=== PATIENT | male | born 1985 | race Caucasian/White ===

== ENCOUNTER 2018-05-03 16:24 | Emergency (ER) | payer SELFPAY ==
--- NOTE | 2018-05-03 17:04 | ER Document Report ---
ED Medical Screen (RME) - General Chief Complaint: Seizure Stated Complaint: POSSIBLE SEIZURE Time Seen by Provider: 05/03/18 17:00 TRAVEL OUTSIDE OF THE [place] IN LAST 30 DAYS: No - HPI Notes: 05/03/18 17:03 States history of seizure disorder on Dilantin and Valium does not know the dose of either medication states his pharmacy [facility] in [place] does not know the name of the pharmacy will have to call his sister to get name and phone number to confirm medications Narcotic database was performed with inquiries in [place] showing only Lunesta prescribed recently here in [place] by Dr. Lam in april - Related Data Allergies/Adverse Reactions: No Known Allergies Allergy (Unverified 07/10/14 13:53) Past Medical History - Social History Chew tobacco use (# tins/day): No Frequency of alcohol use: None Drug Abuse: Marijuana Neurological Medical History: Reports: Hx Seizures Renal/ Medical History: Denies: Hx Peritoneal Dialysis Past Surgical History: Reports: Hx Orthopedic Surgery - Right palmar hand surgery following laceration injury. - Immunizations Hx Diphtheria, Pertussis, Tetanus Vaccination: Yes Review of Systems - Review of Systems Neurological/Psychological: Seizure Physical Exam - Vital signs Vitals: Temp Pulse Resp BP Pulse Ox 99.3 F 117 H 16 133/88 H 97 05/03/18 16:30 05/03/18 16:30 05/03/18 16:30 05/03/18 16:30 05/03/18 16:30 - HEENT Head: Normocephalic Eyes: Normal Course - Vital Signs Vital signs: Temp Pulse Resp BP Pulse Ox 99.3 F 117 H 16 133/88 H 97 05/03/18 16:30 05/03/18 16:30 05/03/18 16:30 05/03/18 16:30 05/03/18 16:30
--- NOTE | 2018-05-03 17:48 | ER Document Report ---
ED General - General Chief Complaint: Seizure Stated Complaint: POSSIBLE SEIZURE Time Seen by Provider: 05/03/18 17:00 TRAVEL OUTSIDE OF THE [place] IN LAST 30 DAYS: No - HPI Notes: Patient is a 32-year-old male with a history of seizure disorder who presents to the emergency department with concern of increase in frequency of his seizures after being out of his medicine for the last 4 days. Patient states that he was otherwise recently incarcerated. Patient states that he was on Dilantin and Valium, but does not know the dosing. He states that he will call to try to find that out. He otherwise has not established with anybody here yet as he recently moved back from [place]. Patient states that sometimes his seizures are grand mal and other times he is still. Patient states that his grandmother witnessed the end of 1 of his seizures today, but was not there to witness the entire thing. Patient states that he was sitting down at the time. Patient states that there was a mild postictal period which is not uncommon for him. Patient states that since then he has felt back to normal and has no other concerns or complaints. He is eating and drinking without difficulty. He is urinating normally and having normal bowel movements. Patient does admit to marijuana use, but denies other IV drug abuse. Denies alcohol intake. Denies any headache, fever, head injury, neck pain, changes in vision/speech/mentation/hearing, URI, sore throat, chest pain, palpitations, syncope, cough, shortness of breath, wheeze, dyspnea, abdominal pain, nausea/vomiting/diarrhea, urinary retention, dysuria, hematuria, loss of control of bowel or bladder, numbness/tingling, saddle anesthesia, muscle par alysis/weakness, or rash. Update: pt called and found out that he take dilantin 200mg in the AM and 100mg in the PM. - Related Data Allergies/Adverse Reactions: No Known Allergies Allergy (Unverified 07/10/14 13:53) Past Medical History - Social History Smoking Status: Current Every Day Smoker Chew tobacco use (# tins/day): No Frequency of alcohol use: None Drug Abuse: Marijuana Family History: Reviewed & Not Pertinent Patient has suicidal ideation: No Patient has homicidal ideation: No Neurological Medical History: Reports: Hx Seizures Renal/ Medical History: Denies: Hx Peritoneal Dialysis Past Surgical History: Reports: Hx Orthopedic Surgery - Right palmar hand surgery following laceration injury. - Immunizations Hx Diphtheria, Pertussis, Tetanus Vaccination: Yes Review of Systems - Review of Systems -: Yes All other systems reviewed and negative Physical Exam - Vital signs Vitals: Temp Pulse Resp BP Pulse Ox 99.3 F 117 H 16 133/88 H 97 05/03/18 16:30 05/03/18 16:30 05/03/18 16:30 05/03/18 16:30 05/03/18 16:30 - Notes Notes: PHYSICAL EXAMINATION: GENERAL: Well-appearing, well-nourished and in no acute distress. A&Ox4. Answers questions appropriately. HEAD: Atraumatic, normocephalic. Non-tender. EYES: Pupils equal round and reactive to light, extraocular movements intact, sclera anicteric, conjunctiva are normal. No nystagmus. ENT: EAC clear b/l. TM's intact b/l without erythema, fluid, or perforation. Nares patent and without discharge. oropharynx clear without exudates. No ton silar hypertrophy or erythema. Moist mucous membranes. NECK: Normal range of motion, supple without lymphadenopathy. No rigidity/meningismus. No midline tenderness. LUNGS: Breath sounds clear to auscultation bilaterally and equal. No wheezes rales or rhonchi. HEART: Regular rate and rhythm without murmurs, rubs, gallops. ABDOMEN: Soft, nontender, nondistended abdomen. No guarding, no rebound. Normal bowel sounds present. No CVA tenderness bilaterally. Musculoskeletal: Ext's b/l: FROM to passive/active. Strength 5+/5. No deficits noted. No bony tenderness of extremities. Extremities: No cyanosis, clubbing, or edema b/l. Peripheral pulses 2+. Capillary refill less than 2 seconds. NEUROLOGICAL: NIH 0. GCS 15. Cranial nerves grossly intact. Normal speech, normal gait. Normal sensory, motor exams. Reflexes 2+ b/l. DAX's negative. Pronator drift negative. Heel/guevara, finger/nose wnl. PSYCH: Normal mood, normal affect. SKIN: Warm, Dry, normal turgor, no rashes or lesions noted. Course - Re-evaluation Re-evalutation: 05/03/18 19:16 Patient is an afebrile, well-hydrated, 32-year-old male who presents emergency department with reported seizures this morning in the setting of seizure disorde r. Vitals are acceptable without significant tachycardia, tachypnea, or hypoxia. PE is otherwise unremarkable for any focal neurological deficits. Patient is nontoxic-appearing and is tolerating p.o. without difficulties. Patient is subtherapeutic with his Dilantin. Labs are otherwise unremarkable. Patient states that he takes 200 mill grams of Dilantin in the morning and [address] Booth recommends 300mg at once daily. No further labs or imaging warranted. Low suspicion for any acute intracranial pathology, sepsis, meningitis, severe dehydration, respiratory compromise, or other systemic emergent condition at this time. Patient s aware that condition can change from initial presentation and he needs to monitor symptoms closely and seek medical attention with any acute changes. I will send him home with a prescription for Dilantin. Recheck with your PCM in 3-5 days. Consider consult with neurology. Return to the ED with any other worsening/concerning symptoms as reviewed. Patient is in agreement. - Vital Signs Vital signs: Temp Pulse Resp BP Pulse Ox 99.3 F 117 H 16 133/88 H 97 05/03/18 16:30 05/03/18 16:30 05/03/18 16:30 05/03/18 16:30 05/03/18 16:30 - Laboratory Result Diagrams: 05/03/18 18:00 Laboratory results interpreted by me: 05/03/18 05/03/18 18:00 18:00 Calcium 10.6 H Phenytoin < 3.0 L Discharge - Discharge Clinical Impression: Seizure Condition: Stable Disposition: HOME, SELF-CARE Instructions: Seizure, Known Epileptic ([facility]) Additional Instructions: Tylenol/ibuprofen as needed Light stretches daily Strength exercises as able Moist heat and massage may help F/u with your PCP in 3-5 days for a recheck Consider consult(s) with Neurology for ongoing/worsening symptoms Return to the ED with any worsening symptoms and/or development of fever, headache, changes in behavior/mentation/vision/speech, chest pain, palpitations, syncope, shortness of breath, trouble breathing, abdominal pain, n/v/d, blood in stool/urine, loss of control of bowel/bladder, urinary retention, muscle weakness/paralysis, saddle anesthesia, numbness/tingling, or other worsening symptoms that are concerning to you. Prescriptions: Phenytoin Sodium Extended [Dilantin 100 mg Capsule.er] 300 mg PO DAILY 20 Days # 60 capsule Forms: Elevated Blood Pressure, Smoking Cessation Education Referrals: PARRISH CHAVIRA MD [NO LOCAL MD] - Follow up as needed
[2018-05-03 18:09] LABS: APPEARANCE,URINE CLEAR; BILIRUBIN,URINE NEGATIVE (NEGATIVE); COLOR,URINE STRAW; GLUCOSE, URINE NEGATIVE (NEGATIVE); KETONES,URINE NEGATIVE (NEGATIVE); LEUKOCYTE ESTERASE,URINE NEGATIVE (NEGATIVE); NITRITE,URINE NEGATIVE (NEGATIVE); PROTEIN,URINE NEGATIVE (NEGATIVE); URINE SPECIFIC GRAVITY 1.008; UROBILINOGEN,URINE NEGATIVE mg/dL (<2.0)
[2018-05-03 18:24] LABS: URINE AMPHETAMINES SCREEN NEGATIVE; URINE BARBITURATES SCREEN NEGATIVE; URINE BENZODIAZEPINES SCREEN NEGATIVE; URINE COCAINE SCREEN NEGATIVE; URINE MARIJUANA (THC) SCREEN NEGATIVE; URINE METHADONE SCREEN NEGATIVE; URINE PHENCYCLIDINE SCREEN NEGATIVE
[2018-05-03 18:34] LABS: ANION GAP 13 (5-19); BLOOD UREA NITROGEN 12 mg/dL (7-20); CALCIUM 10.6 mg/dL (8.4-10.2); CARBON DIOXIDE 26 mmol/L (22-30); CHLORIDE 102 mmol/L (98-107); GLUCOSE 95 mg/dL (75-110); POTASSIUM 4.3 mmol/L (3.6-5.0); SODIUM 141.2 mmol/L (137-145)
[2018-05-03 18:35] LABS: ALCOHOL < 10 mg/dL (NONE DETECTED)
[2018-05-03 19:42] VITALS: BP 101/71
== END 2018-05-03 19:42 | disposition home or self-care (01) ==
LOC: ER 16:24
DX: R56.9 Unspecified convulsions (principal); Z79.899 Other long term (current) drug therapy; F17.200 Nicotine dependence, unspecified, uncomplicated
CPT/HCPCS: 36415; 80048; 80185; 80307; 81001; 99284